=== PATIENT | female | born 1955 | race Caucasian/White ===

== ENCOUNTER 2024-01-19 08:05 | Outpatient (CLI) | payer MEDICARE, BC ==
[2024-01-19] MEDS ORDERED: Iopamidol 370 76% 100 ML VIAL ONE (09:23)
== END 2024-01-19 08:06 | disposition home or self-care (01) ==
LOC: CSHCT 08:05
PROVIDERS: ATTEND Internal Medicine
DX: G45.9 Transient cerebral ischemic attack, unspecified (principal); I70.8 Atherosclerosis of other arteries; I65.23 Occlusion and stenosis of bilateral carotid arteries
CPT/HCPCS: 36415; 70496; 70498; 70551; 82565